=== PATIENT | male | born 1950 | race Caucasian/White ===

== ENCOUNTER 2017-07-06 23:13 | Emergency (ER) | payer MEDICARE, OTHER ==
[~2017-07-06] VITALS: Ht 175.3 cm; Wt 77.1 kg
[~2017-07-06 23:13] MED LIST: NKM
[2017-07-06 23:15] VITALS: BP 125/87
[2017-07-06] MEDS ORDERED: POLYTRIM OP SOL10 ML OPHTHALM (23:37)
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
[2017-07-06 23:47] VITALS: BP 125/87
== END 2017-07-06 23:53 | disposition home or self-care (01) ==
LOC: EDBD 23:13 → EMR 23:14
DX: H57.12 Ocular pain, left eye (principal); H10.9 Unspecified conjunctivitis; Y04.2XXA Assault by strike against or bumped into by another person, initial encounter; Y92.9 Unspecified place or not applicable
CPT/HCPCS: 99283